=== PATIENT | female | born 1955 | race Caucasian/White ===

== ENCOUNTER 2022-08-17 05:47 | Day surgery (SDC) | payer MEDICARE, BC ==
[2022-08-09 08:10] VITALS: BP 126/70
[~2022-08-17] VITALS: Ht 160 cm; Wt 82.7 kg
[~2022-08-17 05:47] MED LIST: CITRACAL + D E1 EACH PO; CLARITIN10 MG PO; FLOVENT HFA12 GM INH; FLUTICASONE PRO16 GM NAS; MAGNESIUM250 M1 PO; PERCOCET 5-3251 EACH PO; PERCOCET 7.5-31 EACH PO; PROMETHAZINE HC25 M1 PO; RA NIACIN 500500 MG PO; SINGULAIR10 MG PO; SPIRONOLACTONE50 MG PO; VIT A-BETA25000 UNIT PO; XOPENEX HFA15 GM INH; ZYRTEC10 MG PO; [UNRECOGNIZED DRUG - OTHER] PO
[2022-08-17 06:02] VITALS: BP 108/67
[2022-08-17] MEDS ORDERED: TRAMADOL HCL50 MG PO (07:39)
[2022-08-17 07:40] VITALS: BP 122/69
[2022-08-17] MEDS ORDERED: ALEVE220 M1 PO (07:40)
--- NOTE | 2022-08-17 08:13 | NUR ---
LE 0735 PATIENT BACK INTO ROOM 6. REPORT RECIEVED FROM NAHUM KEITH AND TROY WEAVER. NO ANESTHESIA GIVEN DURING PROCEDURE. PATIENT ALERT AND ORIENTED. BREATHING EQUAL AND UNLABORED. OXYGEN SATURATIONS ABOVE 90% ON ROOM AIR. PATIENT DENIES PAIN AND BEING NAUSEATED. PATIENT CMST INTACT ON RUE. IVF INFUSING. SCD'S ON. WATER AND COFFEE GIVEN. CALL LIGHT WITHIN REACH NO FUTHER NEEDS. NO QUESTIONS AT THIS TIME. AT BED SIDE.
--- NOTE | 2022-08-17 08:31 | NUR ---
CONNECTED WITH PT SHE WAS HEADED TO OR. GAVE BLESSING AND ENCOURAGEMENT. REMAINS IN RM FOR DC
[2022-08-17 08:40] VITALS: BP 146/89
--- NOTE | 2022-08-17 10:20 | OR ---
[facility] [address], [place] [address] Signed DATE OF OPERATION: 08/17/2022 SURGEON: Farzaneh Alvarez MD PREOPERATIVE DIAGNOSIS: Trigger finger, right, small. POSTOPERATIVE DIAGNOSIS: Trigger finger, right, small. PROCEDURE PERFORMED: Trigger finger release, right, small. ENGINEERING DOCUMENTATION SPECIALIST: None. ANESTHESIA: [place] block. TOURNIQUET TIME: 20 minutes. BRIEF HISTORY: Marcella is a 66-year-old female with progressive worsening of pain and locking in her small finger. Risks and benefits of operative treatment were discussed with her. She elected to proceed. PROCEDURE IN DETAIL: Once consent was obtained, she was taken to the operating room. After adequate anesthesia, she was placed on the operating room table. All downside pressure points were well padded. The arm was prepped and draped in a standard sterile fashion after establishment of the block. The was then palpated and 1 cm incision was made overlying the distal palmar crease. This was carried through the skin and subcutaneous tissue. The A1 sreeknath was immediately identified under loupe magnification. There was extensive synovitis along the tract of the tendon sheath such that the synovium was out on each side of the A1 sreekanth. Careful dissection, we released the A1 sreekanth and removed some of the synovium in the surrounding area, which was quite thickened. There was a thickened area of the small finger as well. The patient was asked to move her fingers, fully flex and fully extend with no trouble. The wound was then copiously irrigated with normal saline and closed with 3-0 nylon and injected with Electronically Signed By: FARZANEH ALVAREZ MD 08/17/22 1020 PATIENT NAME: MARCELLA MORRISON OPERATIVE REPORT DATE OF : 53 REPORT #: [id number] PHYSICIAN: FARZANEH ALVAREZ MD PCP: TANA ROMEO REPORT IS CONFIDENTIAL AND NOT TO BE RELEASED WITHOUT AUTHORIZATION [facility] [address], [place] [address] Signed 5 mL of 0.25% plain Marcaine. The wound was dressed with bacitracin, Adaptic, 4 x 8s, and gauze. She tolerated the procedure well. All sponge, needle, and instrument counts were correct. Farzaneh Alvarez MD BA/MODL /[id number] Copies: ~ Electronically Signed By: FARZANEH ALVAREZ MD 08/17/22 1020 PATIENT NAME: MARCELLA MORRISON OPERATIVE REPORT DATE OF : 53 REPORT #: [id number] PHYSICIAN: FARZANEH ALVAREZ MD PCP: TANA ROMEO REPORT IS CONFIDENTIAL AND NOT TO BE RELEASED WITHOUT AUTHORIZATION
--- NOTE | 2022-08-17 10:39 | NUR ---
LE 0840 PATIENT AMBULATED TO THE RESTROOM. PATIENT AMBULATED BACK AND TOLERATED IT WELL. ARM ELEVATED AND ICE APPLIED. PATIENT DRINKING COFFEE WITH . PATIENT HAS MET DISCHARGE CRITERIA. PATIENT DRESSED SELF AND TOLERATED IT WELL. IV D/C'D WNL. DISCHARGE INSTRUCTIONS GVIEN AND UNDERSTOOD. NO QUESTIONS AT THIS TIME. PATIENT WHEELED OUT OF FACILITY TO PRIVATE AUTO.
== END 2022-08-17 08:40 | disposition home or self-care (01) ==
LOC: DS 05:47
PROVIDERS: ATTEND Specialist
PROC: 0LN70ZZ Release Right Hand Tendon, Open Approach (ICD-10-PCS; principal; 2022-08-17 07:00)
DX: M65.351 Trigger finger, right little finger (principal); Z88.0 Allergy status to penicillin; Z88.5 Allergy status to narcotic agent
CPT/HCPCS: J0690; J7121